=== PATIENT | male | born 1990 ===

== ENCOUNTER 2019-04-21 22:21 | Emergency (ER) | payer SELFPAY ==
[~2019-04-21] VITALS: Ht 188 cm; Wt 82.8 kg
[2019-04-21 22:34] VITALS: BP 131/83
--- NOTE | 2019-04-21 23:06 | NUR ---
Pt leaving AMA.
== END 2019-04-21 23:16 | disposition left against medical advice (07) ==
LOC: ED 22:50
DX: N50.812 Left testicular pain (principal); N50.811 Right testicular pain; Z72.9 Problem related to lifestyle, unspecified; F17.200 Nicotine dependence, unspecified, uncomplicated
CPT/HCPCS: 99281